=== PATIENT | female | born 1960 | race Asian ===

== ENCOUNTER 2018-03-29 06:22 | Day surgery (SDC) | payer OTHER ==
[~2018-03-29] VITALS: Ht 162.6 cm; Wt 77.3 kg
[~2018-03-29 06:22] MED LIST: GLIP10TA9 PO; METF-444 PO
[2018-03-29] MEDS ORDERED: BENZOCAINE 20% 50 MCG/SPRAY 57 GM TP ONE (06:23)
[2018-03-29] MEDS ORDERED: LIDOCAINE 2% 30 ML JELLY TP ONE (06:23)
[2018-03-29] MEDS ORDERED: ALBUTEROL SULFATE 2.5 MG/0.5 ML NEB SOLUTION NEB ONE (06:23)
[2018-03-29] MEDS ORDERED: SODIUM CHLORIDE 0.9% 1,000 ML IV ONE ×2 (06:35→07:00)
[2018-03-29] MEDS ORDERED: ALBU8.5H8 IH (07:08)
[2018-03-29] MEDS ORDERED: PROP1DRO4 OU (07:08)
[2018-03-29] MEDS ORDERED: ATOR20TA86 PO (07:08)
[2018-03-29] MEDS ORDERED: INSU100C6 SQ (07:08)
[2018-03-29] MEDS ORDERED: ACET500C4 PO (07:08)
[2018-03-29] MEDS ORDERED: LOSA50TA25 PO (07:08)
[2018-03-29] MEDS ORDERED: HYDR25TA PO (07:08)
[2018-03-29] MEDS ORDERED: FAMO20 PO (07:08)
[2018-03-29] MEDS ORDERED: ADV250 IH (07:08)
[2018-03-29] MEDS ORDERED: METF-444 PO (07:08)
[2018-03-29] MEDS ORDERED: DULA1.5P SQ (07:08)
[2018-03-29] MEDS ORDERED: EXEN2VIA SQ (07:08)
[2018-03-29] MEDS ORDERED: ASPI-1182 PO (07:08)
[2018-03-29] MEDS ORDERED: CA C1TAB86 PO (07:08)
[2018-03-29] MEDS ORDERED: MULT-1203 PO (07:08)
[2018-03-29] MEDS ORDERED: MIDAZOLAM HCL 2 MG/2 ML VIAL ONE (07:28)
[2018-03-29] MEDS ORDERED: FentaNYL CITRATE-PF 100 MCG/2 ML VIAL ONE (07:28)
[2018-03-29] MEDS ORDERED: INSULIN REGULAR, HUMAN 100 UNITS/ML SQ ONE (08:00)
[2018-03-29] MEDS ORDERED: MethylPREDNISolone SOD SUCC 125 MG/2 ML VIAL IVP ONE (08:15)
[2018-03-29 08:28] LABS: GLUCOMETER DEV NAME(LOC) SDS 5; GLUCOSE,POINT OF CARE 332 MG/DL (70-110)
[2018-03-29 08:29] LABS: GLUCOMETER DEV NAME(LOC) SDS 5; GLUCOSE,POINT OF CARE 318 MG/DL (70-110)
[2018-03-29 10:08] LABS: GLUCOMETER DEV NAME(LOC) SDS 5; GLUCOSE,POINT OF CARE 279 MG/DL (70-110)
[2018-03-29] MEDS ORDERED: OXYGEN THERAPY IH SCH (20:00)
== END 2018-03-29 10:15 | disposition home or self-care (01) ==
LOC: SURGERY 06:22
PROVIDERS: ATTEND Internal Medicine Critical Care Medicine
DX: J38.4 Edema of larynx (principal); B37.0 Candidal stomatitis; J98.09 Other diseases of bronchus, not elsewhere classified; J45.998 Other asthma; E11.9 Type 2 diabetes mellitus without complications; K21.9 Gastro-esophageal reflux disease without esophagitis; E78.00 Pure hypercholesterolemia, unspecified; I10 Essential (primary) hypertension; G47.33 Obstructive sleep apnea (adult) (pediatric); F41.8 Other specified anxiety disorders; Z79.891 Long term (current) use of opiate analgesic; Z79.82 Long term (current) use of aspirin; Z79.4 Long term (current) use of insulin; Z79.84 Long term (current) use of oral hypoglycemic drugs; Z79.899 Other long term (current) drug therapy; Z98.890 Other specified postprocedural states
CPT/HCPCS: 31623; 31624; 71045; 82962; 87015; 87070; 87205; 87206; 87220; 88108; 88313; 93005; J2250; J3010; J7030

== ENCOUNTER 2019-07-08 21:04 | Emergency (ER) | payer OTHER ==
[~2019-07-08] VITALS: Ht 162.6 cm; Wt 77.3 kg
[~2019-07-08 21:04] MED LIST changes: +ACET500C4 PO; +ADV250 IH; +ALBU8.5H8 IH; +ASPI-1182 PO; +ATOR20TA86 PO; +CA C1TAB86 PO; +DULA1.5P SQ; +EXEN2VIA SQ; +FAMO20 PO; +HYDR25TA PO; +INSU100C6 SQ; +LOSA50TA64 PO; +MULT-1203 PO; +PROP1DRO4 OU
[2019-07-08 21:43] LABS: GLUCOSE,POINT OF CARE 176 MG/DL (70-110)
[2019-07-08 22:21] LABS: BASOPHILS % (AUTO) 0.5 % (0.0-2.0); EOSINOPHILS % (AUTO) 1.2 % (1.0-6.0); HEMATOCRIT 34.3 % (36-46); HEMOGLOBIN 11.5 g/dL (12.0-16.0); LYMPHOCYTES # (AUTO) 1.5 K/uL (1.0-4.8); LYMPHOCYTES % (AUTO) 16.1 % (22.0-44.0); MEAN CORPUSCULAR HEMOGLOBIN 26.9 pg (26.0-34.0); MEAN CORPUSCULAR HGB CONC 33.5 G/dL (31.0-37.0); MEAN CORPUSCULAR VOLUME 80 fL (80-100); MONOCYTES # (AUTO) 0.5 K/uL (0.1-1.0); MONOCYTES % (AUTO) 5.8 % (2.0-9.0); NEUTROPHILS # (AUTO) 6.9 K/uL (1.8-7.7); NEUTROPHILS % (AUTO) 76.4 % (40.0-70.0); PLATELET COUNT (AUTO) 345 K/uL (150-450); RED BLOOD CELL COUNT(AUTO) 4.28 MIL/uL (4.00-5.20); RED CELL DISTRIBUTION WIDTH 13.6 % (11.5-14.5)
[2019-07-08 22:33] LABS: CALCIUM, TOTAL 9.8 mg/dL (8.8-10.5); CREATININE 1.1 mg/dL (0.60-1.30)
[2019-07-08 22:39] LABS: ALBUMIN 3.9 g/dL (3.4-5.0); BILIRUBIN,TOTAL 0.4 mg/dL (0.1-1.0)
[2019-07-08 23:16] LABS: APPEARANCE,URINE CLOUDY (CLEAR); BILIRUBIN,URINE NEGATIVE (NEGATIVE); GLUCOSE, URINE (UA) NEGATIVE (NEGATIVE); KETONES,URINE NEGATIVE (NEGATIVE); LEUKOCYTE ESTERASE ,URINE SMALL (NEGATIVE); NITRATE,URINE POSITIVE (NEGATIVE); OCCULT BLOOD,URINE SMALL (NEGATIVE); PROTEIN,URINE SEE CONFIRM (NEGATIVE); UROBILINOGEN,URINE 0.2 mg/dL (<=1.0)
[2019-07-08 23:25] LABS: BACTERIA,URINE Many /HPF (None Seen); SULFOSALICYLIC ACID,URINE 4+ (Negative)
[2019-07-08 23:26] LABS: RBC,URINE 0-2 /HPF (0-2); SQUAMOUS EPITHELIAL CELL,UR Moderate /LPF (None Seen)
[2019-07-09 00:26] LABS: MAGNESIUM 1.9 mg/dL (1.80-2.40)
[2019-07-09] MEDS ORDERED: SODIUM CHLORIDE 0.9% 1,000 ML IV ONE (00:30)
[2019-07-09] MEDS ORDERED: ONDANSETRON HCL 4 MG/2 ML VIAL IVP ONE (00:30)
[2019-07-09 00:43] LABS: INFLUENZA TYPE A NEGATIVE FOR TYPE A (NEGATIVE); INFLUENZA TYPE B NEGATIVE FOR TYPE B (NEGATIVE)
[2019-07-09] MEDS ORDERED: CEPHALEXIN MONOHYDRATE 500 MG CAPSULE PO ONE (01:00)
[2019-07-09 01:34] VITALS: BP 132/86
== END 2019-07-09 01:46 | disposition home or self-care (01) ==
LOC: EMS 21:05
DX: N39.0 Urinary tract infection, site not specified (principal); R11.2 Nausea with vomiting, unspecified; J45.909 Unspecified asthma, uncomplicated; E11.9 Type 2 diabetes mellitus without complications; I10 Essential (primary) hypertension; E78.00 Pure hypercholesterolemia, unspecified; Z79.84 Long term (current) use of oral hypoglycemic drugs; Z79.82 Long term (current) use of aspirin; Z79.4 Long term (current) use of insulin
CPT/HCPCS: 36415; 71046; 80053; 81001; 82550; 82962; 83690; 83735; 84484; 85025; 87077; 87086; 87186; 87804; 93005; 96361; 96374; 99284; J2405; J7030

== ENCOUNTER 2024-10-01 10:12 | Emergency (ER) | payer OTHER, MEDICAID ==
[~2024-10-01] VITALS: Ht 157.5 cm; Wt 72.7 kg
[~2024-10-01 10:12] MED LIST changes: -ACET500C4 PO; +AMOX-457 PO; -ASPI-1182 PO; +ASPI-1444 PO; +ATOR20TA PO; -ATOR20TA86 PO; +CEPH-582 PO; -DULA1.5P SQ; -EXEN2VIA SQ; -GLIP10TA9 PO; -HYDR25TA PO; +HYDR25TA84 PO; +INSU100V42 SQ; -LOSA50TA64 PO; -METF-444 PO; +NITR0.4T50 SL; +TICA90TA PO
[2024-10-01 10:16] VITALS: TEMP 99.5
[2024-10-01] MEDS ORDERED: INSU100I56 SQ (10:22)
[2024-10-01] MEDS ORDERED: POLY510P31 PO (10:22)
[2024-10-01] MEDS ORDERED: GABA-529 PO (10:22)
[2024-10-01] MEDS ORDERED: FINE10TA PO (10:22)
[2024-10-01] MEDS ORDERED: MEDR5TAB5 PO (10:22)
[2024-10-01] MEDS ORDERED: FLUT1BLS12 PO (10:22)
[2024-10-01] MEDS ORDERED: METF-1211 PO (10:22)
[2024-10-01] MEDS ORDERED: MELA5TAB40 PO (10:22)
[2024-10-01] MEDS ORDERED: SEMA1PEN3 SQ (10:22)
[2024-10-01] MEDS ORDERED: MONT-40 PO (10:22)
[2024-10-01] MEDS ORDERED: LOSA-382 PO (10:22)
[2024-10-01] MEDS ORDERED: INSU100I94 SQ (10:22)
[2024-10-01] MEDS ORDERED: EMPA25TA3 PO (10:22)
[2024-10-01] MEDS ORDERED: BEMP1TAB PO (10:22)
[2024-10-01] MEDS ORDERED: OMEG-237 PO (10:22)
[2024-10-01] MEDS ORDERED: NITR0.4T52 SL (10:22)
[2024-10-01] MEDS ORDERED: MULT1TAB67 PO (10:22)
[2024-10-01 10:32] LABS: COVID AG,FIA SOURCE NASAL SWAB
[2024-10-01 10:51] LABS: SARS-COV2 (COVID) ANTIGEN,FIA Negative (Negative)
[2024-10-01 10:52] LABS: INFLUENZA TYPE A NEGATIVE FOR TYPE A (NEGATIVE); INFLUENZA TYPE B NEGATIVE FOR TYPE B (NEGATIVE)
[2024-10-01] MEDS: OXYMETAZOLINE HCL 0.05% 15 ML NASAL SPRAY NASAL ONE (14:18)
[2024-10-01] MEDS ORDERED: AMOX500C2 PO (14:49)
[2024-10-01 15:14] VITALS: BP 133/59; PULSE 90; RESP 18; O2SAT 98
== END 2024-10-01 15:15 | disposition home or self-care (01) ==
LOC: EMS 10:14
DX: J32.9 Chronic sinusitis, unspecified (principal); E11.9 Type 2 diabetes mellitus without complications; I10 Essential (primary) hypertension; J45.909 Unspecified asthma, uncomplicated; E78.00 Pure hypercholesterolemia, unspecified; Z79.4 Long term (current) use of insulin; Z79.82 Long term (current) use of aspirin; Z79.51 Long term (current) use of inhaled steroids; Z79.84 Long term (current) use of oral hypoglycemic drugs; Z79.85 Long-term (current) use of injectable non-insulin antidiabetic drugs; Z79.02 Long term (current) use of antithrombotics/antiplatelets; Z79.899 Other long term (current) drug therapy; Z20.822 Contact with and (suspected) exposure to COVID-19
CPT/HCPCS: 71045; 87804; 99284

== ENCOUNTER 2025-02-05 10:23 | Emergency (ER) | payer OTHER, MEDICAID ==
[~2025-02-05] VITALS: Ht 157.5 cm; Wt 71.0 kg
[~2025-02-05 10:23] MED LIST changes: -ADV250 IH; -AMOX-457 PO; +BEMP1TAB PO; +CARV3 PO; -CEPH-582 PO; +FINE10TA PO; +FLUT1BLS12 PO; +GABA-529 PO; -HYDR25TA84 PO; -INSU100C6 SQ; -INSU100V42 SQ; +LEVO750T68 PO; -MULT-1203 PO; -NITR0.4T50 SL; -PROP1DRO4 OU; +SITA50 PO
[2025-02-05 10:34] VITALS: TEMP 97.9
[2025-02-05 10:51] LABS: GLUCOMETER DEV NAME(LOC) ER.7; GLUCOSE,POINT OF CARE 185 MG/DL (70-110)
[2025-02-05 12:28] LABS: PLATELET COUNT (AUTO) 329 K/uL (150-450); RED BLOOD CELL COUNT(AUTO) 4.06 MIL/uL (4.00-5.20); RED CELL DISTRIBUTION WIDTH 13.0 % (11.5-14.5); WHITE BLOOD COUNT (AUTO) 14.4 K/uL (4.5-11.0)
[2025-02-05 12:35] LABS: CALCIUM, TOTAL 9.5 mg/dL (8.8-10.5); CREATININE 1.54 mg/dL (0.60-1.30); GLOMERULAR FILTR. RATE CALC 34.0 mL/min (>60); GLUCOSE,RANDOM 116.0 mg/dL (70-110); SODIUM SERUM 138.0 mmol/L (136-145); UREA NITROGEN, BLOOD 32.0 mg/dL (7-18)
[2025-02-05 12:45] LABS: RBC MORPHOLOGY COMMENT NORMAL RBC MORPH
[2025-02-05 13:33] LABS: APPEARANCE,URINE HAZY (CLEAR); GLUCOSE, URINE (UA) >=1000 mg/dL (NEGATIVE); LEUKOCYTE ESTERASE ,URINE MODERATE (NEGATIVE); NITRATE,URINE POSITIVE (NEGATIVE); OCCULT BLOOD,URINE NEGATIVE (NEGATIVE); SPECIFIC GRAVITIY, URINE 1.005 (1.003-1.030)
[2025-02-05 13:47] LABS: SQUAMOUS EPITHELIAL CELL,UR Few /LPF (None Seen)
[2025-02-05] MEDS: SODIUM CHLORIDE 0.9% 500 ML IV ONE (14:02)
[2025-02-05] MEDS: CefTRIAXone 1 GM/DEXTROSE 50 ML IV ONE (14:04)
[2025-02-05] MEDS ORDERED: CEPH-558 PO (14:04)
[2025-02-05 14:09] VITALS: BP 161/75; PULSE 69; RESP 18; O2SAT 98
== END 2025-02-05 14:58 | disposition home or self-care (01) ==
LOC: EMS 10:23
DX: N39.0 Urinary tract infection, site not specified (principal); R51.9 Headache, unspecified; J45.909 Unspecified asthma, uncomplicated; E11.9 Type 2 diabetes mellitus without complications; E78.00 Pure hypercholesterolemia, unspecified; I10 Essential (primary) hypertension; I25.10 Atherosclerotic heart disease of native coronary artery without angina pectoris; Z79.82 Long term (current) use of aspirin; Z79.51 Long term (current) use of inhaled steroids; Z79.899 Other long term (current) drug therapy
CPT/HCPCS: 99284; 96365; 80048; 81001; 82962; 85025; 87077; 87086; 87186; 36415; 93005; J0696